=== PATIENT | male | born 1960 | race Caucasian/White ===

== ENCOUNTER 2017-03-26 13:00 | Emergency (ER) | payer MEDICARE, MEDICAID, SELFPAY ==
[2017-03-26 14:01] VITALS: BP 147/78; PULSE 86; RESP 18; TEMP 36.8; O2SAT 99; BMI 26.6
--- NOTE | 2017-03-26 14:24 | HMH.EDUTC ---
[facility] – [place] Dis[place] Clinical Impression: Elbow swelling Qualifiers: Laterality: left Qualified Code(s): M25.422 - Effusion, left elbow Disposition: Home, Self-Care Condition on Discharge: Good Additional Instructions: Follow up with Dr Kern on in the Ortho clinic on Mar 28 at 1pm Return if needed Over the counter Motrin or Tylenol as needed for fever or pain FOllow up with family doctor Referrals: Alexis Kern MD [Staff Physician] - Jorden Jaimes MD [Staff Physician] - Time of Disposition: 14:48 Medical Decision Making - Medical Records Medical records reviewed: Yes: I reviewed the patient's medical records. Vital Signs: 03/26/17 14:01 Temperature 98.2 F Temperature Source Temporal Artery Scan Pulse Rate [Right] 86 Respiratory Rate 18 Blood Pressure [Right Arm] 147/78 Blood Pressure Mean [Right Arm] 101 Blood Pressure Source [Right Arm] Automatic Cuff Blood Pressure Position [Right Arm] Sitting 02 Sat by Pulse Oximetry 99 Oxygen Delivery Method Room Air - Physician Consults Physician Consulted: Dr Kern Time: 14:44 Reason -: Other Comment/Response: Called office and patient was given appointment for at 1pm, - Davin Inquiry Pt receiving controlled substance: No Davin was queried for this patient: No [facility] [place] HPI - General Stated complaint: fluid on left elbos Mode of Arrival: Ambulatory Source of Information: Patient Limitations: No Limitations Description of Symptoms (Recalled from Triage Doc. by RN): LEFT ELBOW SWOLLEN STATES RETAINING FLUID X3 MONTHS HEENT Symptoms (Recalled from RN notes): No Resp Symptoms (Recalled from RN notes): No Skin Symptoms (Recalled from RN notes): No MS Symptoms (Recalled from RN notes): Yes Functional Status (Recalled from RN notes): N - History of Present Illness Provider Complaint: Patient state that he has been having pain and swelling in his elbow for awhile now in which he has had several aspirations States that he noticed the swelling was returning so he came in to see if we could get to early and get that fluid out - Related Data Home Medications Medication Instructions Recorded Confirmed No Known Home Medications [No 03/26/17 03/26/17 Known Home Medications] Allergies Allergy/AdvReac Type Severity Reaction Status Date / Time ketorolac Allergy Verified 03/26/17 14:07 tramadol Allergy Verified 03/26/17 14:07 From Ketorolac Tromethamine Allergy Mild I-HIVES Uncoded 02/05/17 15:23 TRAMADOL Allergy Mild Uncoded 02/05/17 15:23 - Worker's Comp Is this a Worker's Comp case?: No [facility] History I have reviewed the patient's past medical history: Yes - *Social History Smoking Status: Current every day smoker Tobacco Type: cigarettes Alcohol Intake: never - Psychiatric History Expresses thoughts of harming self/others: None Suicide Plan Description: No Plan ROS Obtained: Yes All systems reviewed & no additional complaints Physical Exam - General General appearance: alert, in no apparent distress - Respiratory Respiratory exam: Present: normal lung sounds bilaterally. Absent: respiratory distress - Cardiovascular Cardiovascular exam: Present: regular rate, normal rhythm. Absent: JVD - Abdominal Exam Abdominal exam: Present: soft, normal bowel sounds. Absent: distention, tenderness, guarding - Expanded Upper Extremity Exam Left Elbow exam: Present: other (Mild swelling states that he is not having pain at this time just wanted to get elbow aspirated before it got too bad) - Neurological Exam Neurological exam: Present: alert, oriented X3 - Other Other exam information: Patient denies pain at this time, able to move elbow easily without pain, mild swelling noted, good pulses. 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
--- NOTE | 2017-03-26 14:30 | ED_ITS ---
[facility] [place] Clinical Impression: Elbow swelling Qualifiers: Laterality: left Qualified Code(s): M25.422 - Effusion, left elbow Disposition: Home, Self-Care Condition on Discharge: Good Additional Instructions: Follow up with Dr Kern on in the Ortho clinic on Mar 28 at 1pm Return if needed Over the counter Motrin or Tylenol as needed for fever or pain FOllow up with family doctor Referrals: Alexis Kern MD [Staff Physician] - Jorden Jaimes MD [Staff Physician] - Time of Disposition: 14:48 Medical Decision Making - Medical Records Medical records reviewed: Yes: I reviewed the patient's medical records. Vital Signs: 03/26/17 14:01 Temperature 98.2 F Temperature Source Temporal Artery Scan Pulse Rate [Right] 86 Respiratory Rate 18 Blood Pressure [Right Arm] 147/78 Blood Pressure Mean [Right Arm] 101 Blood Pressure Source [Right Arm] Automatic Cuff Blood Pressure Position [Right Arm] Sitting 02 Sat by Pulse Oximetry 99 Oxygen Delivery Method Room Air - Physician Consults Physician Consulted: Dr Kern Time: 14:44 Reason -: Other Comment/Response: Called office and patient was given appointment for at 1pm, - Davin Inquiry Pt receiving controlled substance: No Davin was queried for this patient: No [facility] [place] H[place] - General Stated complaint: fluid on left elbos Mode of Arrival: Ambulatory Source of Information: Patient Limitations: No Limitations Description of Symptoms (Recalled from Triage Doc. by RN): LEFT ELBOW SWOLLEN STATES RETAINING FLUID X3 MONTHS HEENT Symptoms (Recalled from RN notes): No Resp Symptoms (Recalled from RN notes): No Skin Symptoms (Recalled from RN notes): No MS Symptoms (Recalled from RN notes): Yes Functional Status (Recalled from RN notes): N - History of Present Illness Provider Complaint: Patient state that he has been having pain and swelling in his elbow for awhile now in which he has had several aspirations States that he noticed the swelling was returning so he came in to see if we could get to early and get that fluid out - Related Data Home Medications Medication Instructions Recorded Confirmed No Known Home Medications [No 03/26/17 03/26/17 Known Home Medications] Allergies Allergy/AdvReac Type Severity Reaction Status Date / Time ketorolac Allergy Verified 03/26/17 14:07 tramadol Allergy Verified 03/26/17 14:07 From Ketorolac Tromethamine Allergy Mild I-HIVES Uncoded 02/05/17 15:23 TRAMADOL Allergy Mild Uncoded 02/05/17 15:23 - Worker's Comp Is this a Worker's Comp case?: No [facility] History I have reviewed the patient's past medical history: Yes - *Social History Smoking Status: Current every day smoker Tobacco Type: cigarettes Alcohol Intake: never - Psychiatric History Expresses thoughts of harming self/others: None Suicide Plan Description: No Plan ROS Obtained: Yes All systems reviewed & no additional complaints Physical Exam - General General appearance: alert, in no apparent distress - Respiratory Respiratory exam: Present: normal lung sounds bilaterally. Absent: respiratory distress - Cardiovascular Cardiovascular exam: Present: regular rate, normal rhythm. Absent: JVD - Abdominal Exam Abdominal exam: Present: soft, normal bowel sounds
[2017-03-26 14:54] VITALS: BP 140/78; PULSE 86; RESP 18; TEMP 36.8
== END 2017-03-26 14:55 | disposition home or self-care (01) ==
PROVIDERS: Emergency Provider Emergency Medicine; Family Provider Family Medicine
DX: M25.422 Effusion, left elbow (principal); Z87.39 Personal history of other diseases of the musculoskeletal system and connective tissue; M25.522 Pain in left elbow; Z88.8 Allergy status to other drugs, medicaments and biological substances; Z72.0 Tobacco use
CPT/HCPCS: 99201

== ENCOUNTER 2020-05-01 15:52 | Emergency (ER) | payer MEDICARE, MEDICAID, SELFPAY ==
[2020-05-01 17:09] VITALS: BP 139/78; PULSE 65; RESP 14; TEMP 36.6; O2SAT 96; BMI 26.6
[2020-05-01 17:20] VITALS: BP 132/74; PULSE 66; RESP 16; TEMP 36.6
--- NOTE | 2020-05-01 17:20 | HMH.EDUTC ---
[facility] – [place] Disposition Clinical Impression: Exposure to COVID-19 virus Disposition: Home, Self-Care Condition on Discharge: Good Instructions: Preventing the Spread of Coronavirus Discharge Instructions Additional Instructions: Drink plenty of fluids. Take tylenol for pain or fever. Return if you begin to have difficulty breathing. Follow up with your regular doctor. GO TO THE ER FOR ANY WORSENING SYMPTOMS Referrals: Corby Fuller MD [Primary Care Provider] - Time of Disposition: 17: Medical Decision Making - Medical Records Medical records reviewed: No: I reviewed the patient's medical records. - Davin Inquiry Pt receiving controlled substance: No Vital Signs: 05/01/20 17:09 05/01/20 17:20 Temperature 98 F 98 F Temperature Source Oral Pulse Rate 66 Pulse Rate [Right] 65 Respiratory Rate 14 16 Blood Pressure 132/74 Blood Pressure [Right Arm] 139/78 Blood Pressure Mean [Right Arm] 98 Blood Pressure Source [Right Arm] Automatic Cuff Blood Pressure Position [Right Arm] Sitting 02 Sat by Pulse Oximetry 96 Oxygen Delivery Method Room Air Orders (Tests/Meds): ORDERS Category Date Time Status Covid-19 Nasal PCR ([facility]) Routine Lab 05/01/20 16:45 Received [facility] [place] HPI - General Stated complaint: COVID TEST Time Seen by Provider: 05/01/20 17:20 Mode of Arrival: Ambulatory Source of Information: Patient Limitations: Physical Limitations Description of Symptoms (Recalled from Triage Doc. by RN): ASYMPTOMATIC EXPOSED TO COVID PT. 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 He has been around his land lord some. He denies any symptoms so far. - Related Data Home Medications Medication Instructions Recorded Confirmed No Known Home Medications 03/26/17 03/26/17 Allergies Allergy/AdvReac Type Severity Reaction Status Date / Time ketorolac Allergy Verified 05/01/20 17:15 tramadol Allergy Verified 05/01/20 17:15 From Ketorolac Tromethamine Allergy Mild I-HIVES Uncoded 02/05/17 15:23 TRAMADOL Allergy Mild Uncoded 02/05/17 15:23 - Worker's Comp Is this a Worker's Comp case?: No [facility] History - Hepatitis A Screen Drug use history?: No High risk sexual behaviors?: No History of sexually transmitted infection?: No Currently employed?: No Childcare worker?: No Do you have indoor plumbing?: Yes Do you have electricity?: Yes Attestation statement:: This patient has been screened for Hepatitis A risk factors. I have reviewed the patient's past medical history: Yes - Social History Smoking Status: Current every day smoker Tobacco Type: cigarettes # Packs/Day (cigarettes): 1 Alcohol Intake: never Occupational Status: disabled ROS Obtained: Yes All systems reviewed & no additional complaints - Constitutional Constitutional: Reports system reviewed and no additional complaints, except as docu - Eyes Eyes: Reports system reviewed and no additional complaints, except as docu - ENT Ears, Nose, Mouth, and Throat: Reports system reviewed and no additional complaints, except as docu - Cardiovascular Cardiovascular: Reports system reviewed and no additional complaints, except as docu - Respiratory Respiratory: Reports system reviewed and no additional complaints, except as docu - Gastrointestinal Gastrointestingal: Reports: system reviewed and no additional complaints, except as docu Physical Exam - General General appearance: alert, in no apparent distress - Head Head exam: atraumatic, normocephalic, normal inspection - Eye Eye exam: Present: normal appearance, PERRL, EOMI - ENT ENT exam: Present: normal exam, normal oropharynx, mucous membranes moist, TM's normal bilaterally,
== END 2020-05-01 17:26 | disposition home or self-care (01) ==
PROVIDERS: Emergency Provider Nurse Practitioner Family; PCP Family Medicine
DX: Z20.822 Contact with and (suspected) exposure to COVID-19 (principal); J45.909 Unspecified asthma, uncomplicated; F17.210 Nicotine dependence, cigarettes, uncomplicated; Z88.8 Allergy status to other drugs, medicaments and biological substances
CPT/HCPCS: G0463; 99202; U0003